=== PATIENT | female | born 1940 | race Caucasian/White ===

== ENCOUNTER 2021-03-01 16:13 | Emergency (ER) | payer MEDICAID ==
[~2021-03-01] VITALS: Ht 154.9 cm; Wt 61.7 kg
[2021-03-01 16:23] VITALS: BP_SYST 121
--- NOTE | 2021-03-01 16:30 | NUR ---
Patient to ER bed 1 to gown for evaluation. Side rails up. Report given to Amira GENTILE.
--- NOTE | 2021-03-01 16:32 | NUR ---
Dr. Torres at bedside to assess.
--- NOTE | 2021-03-01 16:43 | NUR ---
Portable X-ray done at bedside.
--- NOTE | 2021-03-01 16:48 | NUR ---
Lab at bedside for blood draw.
--- NOTE | 2021-03-01 16:51 | NUR ---
EKG completed with results given to Dr. Torres for interpretation.
[2021-03-01] MEDS ORDERED: CLIN300C12 PO (17:09)
[2021-03-01] MEDS ORDERED: IBUP-1971 PO (17:09)
[2021-03-01 17:15] LABS: BASOPHILS % (AUTO) 0.5 % (0.0-2.0); EOSINOPHILS # (AUTO) 0.1 K/uL (0.0-0.4); EOSINOPHILS % (AUTO) 0.9 % (0.0-4.0); HEMATOCRIT 37.9 % (36-48); HEMOGLOBIN 12.9 g/dL (12.0-16.0); LYMPHOCYTES # (AUTO) 1.7 K/uL (1.0-5.5); LYMPHOCYTES % (AUTO) 28.8 % (20.5-51.5); MEAN CORPUSCULAR HEMOGLOBIN 32 pg (27-31); MEAN CORPUSCULAR HGB CONC 34 % (32-36); MEAN CORPUSCULAR VOLUME 93 fL (79.0-98.0); MONOCYTES # (AUTO) 0.5 K/uL (0.0-1.0); MONOCYTES % (AUTO) 8.3 % (1.7-9.3); NEUTROPHILS # (AUTO) 3.6 K/uL (1.8-7.7); NEUTROPHILS % (AUTO) 61.5 % (40.0-70.0); PLATELET COUNT (AUTO) 263 K/uL (130-430); RED BLOOD CELL COUNT(AUTO) 4.09 MIL/uL (4.2-6.2); RED CELL DISTRIBUTION WIDTH 13.8 % (9.0-15.0); WHITE BLOOD COUNT (AUTO) 5.9 K/uL (4.8-10.8)
[2021-03-01 17:24] LABS: ANION GAP 7 (5-15); CALCIUM 9.7 mg/dL (8.4-11.0); CHLORIDE 96 mmol/L (98-107); CREATININE 1.12 mg/dL (0.55-1.30); GLUCOSE 106 mg/dL (70-99); POTASSIUM 4.7 mmol/L (3.5-5.1); SODIUM SERUM 131 mmol/L (136-145); UREA NITROGEN, BLOOD 31 mg/dL (8-21)
[2021-03-01 17:26] LABS: INR 0.9 (0.8-1.2); PROTHROMBIN TIME 9.6 SECS (9.5-12.5)
[2021-03-01 17:28] LABS: ALANINE AMINOTRANSFERASE 36 U/L (12-78); ALBUMIN 3.7 g/dL (3.4-4.8); ASPARTATE AMINOTRANSFERASE 31 U/L (10-37); TOTAL BILIRUBIN 0.4 mg/dL (0.0-1.0)
--- NOTE | 2021-03-01 18:05 | NUR ---
Pt resting quietly in no distress awaiting disposition.
--- NOTE | 2021-03-01 18:30 | NUR ---
Daughter at bedside to assist pt with eating diet.
[2021-03-01 19:18] VITALS: BP_SYST 121
--- NOTE | 2021-03-01 19:19 | NUR ---
Patient given written and verbal discharge instructions and verbalizes understanding. DR. MARINA ESCALANTE MD discussed with patient the results and treatment provided. Patient in stable condition. ID arm band removed. IV catheter removed intact and dressing applied, no active bleeding. Patient educated on pain management and to follow up with PMD. Pain Scale 0/10 Opportunity for questions provided and answered. Medication side effect fact sheet provided.
== END 2021-03-01 19:18 ==
LOC: SED 16:13
DX: S63.502A Unspecified sprain of left wrist, initial encounter (principal); R53.1 Weakness; K21.9 Gastro-esophageal reflux disease without esophagitis; E03.9 Hypothyroidism, unspecified; W18.39XA Other fall on same level, initial encounter; Y93.89 Activity, other specified; Y92.89 Other specified places as the place of occurrence of the external cause; Y99.8 Other external cause status
CPT/HCPCS: 36415; 71045; 80053; 82550; 83605; 84484; 85025; 85610-TC; 85730-TC; 93005; 99285

== ENCOUNTER 2023-06-23 16:27 | Inpatient (IN) | payer MEDICAID ==
[~2023-06-23] VITALS: Ht 162.6 cm; Wt 53.5 kg
[2023-06-23 16:39] VITALS: BP_SYST 124; PULSE 64; RESP 16; TEMP 97.7; O2SAT 96
[2023-06-23 17:24] LABS: BASOPHILS % (AUTO) 0.1 % (0.0-2.0); EOSINOPHILS % (AUTO) 0.2 % (0.0-4.0); HEMATOCRIT 32.9 % (36-48); LYMPHOCYTES # (AUTO) 2.4 K/uL (1.0-5.5); LYMPHOCYTES % (AUTO) 21.5 % (20.5-51.5); MEAN CORPUSCULAR HEMOGLOBIN 32 pg (27-31); MEAN CORPUSCULAR HGB CONC 34 % (32-36); MEAN CORPUSCULAR VOLUME 95 fL (79.0-98.0); MONOCYTES # (AUTO) 0.8 K/uL (0.0-1.0); MONOCYTES % (AUTO) 6.7 % (1.7-9.3); NEUTROPHILS # (AUTO) 8.1 K/uL (1.8-7.7); NEUTROPHILS % (AUTO) 71.5 % (40.0-70.0); PLATELET COUNT (AUTO) 248 K/uL (130-430); RED BLOOD CELL COUNT(AUTO) 3.48 MIL/uL (4.2-6.2); RED CELL DISTRIBUTION WIDTH 14.8 % (9.0-15.0); WHITE BLOOD COUNT (AUTO) 11.3 K/uL (4.8-10.8)
[2023-06-23 17:38] LABS: ANION GAP 7 (5-15); CALCIUM 8.5 mg/dL (8.4-11.0); CARBON DIOXIDE 27 mmol/L (23-29); CHLORIDE 109 mmol/L (98-107); CREATININE 1.07 mg/dL (0.55-1.30); GLUCOSE 102 mg/dL (74-106); POTASSIUM 4.5 mmol/L (3.5-5.1); SODIUM SERUM 143 mmol/L (136-145); UREA NITROGEN, BLOOD 30 mg/dL (8-21)
[2023-06-23 17:49] LABS: ABG O2 SAT% ESTIMATE 96.4 % (94.0-100.0); BLOOD GAS BASE EXCESS -0.5 mmol/L (-3.0-3.0); BLOOD GAS HCO3 22.1 mmol/L (21.0-27.0); BLOOD GAS PCO2 30.9 mmHg (35.0-45.0); BLOOD GAS PH 7.472 (7.350-7.450); BLOOD GAS PO2 78.6 mmHg (75.0-100.0)
[2023-06-23 18:07] LABS: PROTHROMBIN TIME 10.8 SECS (9.5-12.5)
[2023-06-23] MEDS: NACL 0.9% 1,000 ML IV ONE (19:56)
[2023-06-23] MEDS: cefTRIAXone 1 GM IVPB PREMIX 50 ML IV ONE (20:35)
[2023-06-23 20:59] LABS: BILIRUBIN,URINE NEGATIVE (NEGATIVE); BLOOD, URINE 3+ (NEGATIVE); COLOR,URINE YELLOW (YELLOW); GLUCOSE,URINE NEGATIVE (NEGATIVE); KETONES,URINE NEGATIVE (NEGATIVE); LEUKOCYTE ESTERASE ,URINE 3+ (NEGATIVE); NITRITE, URINE POSITIVE (NEGATIVE); PROTEIN URINE 2+ (NEGATIVE); UROBILINOGEN,URINE 0.2 (0.2-1.0)
[2023-06-23 21:01] LABS: CLARITY/URINE HAZY (CLEAR)
[2023-06-23] MEDS ORDERED: LIP10 PO (21:16)
[2023-06-23] MEDS ORDERED: AMYL1CAP58 PO (21:16)
[2023-06-23] MEDS ORDERED: FLEETMO RC (21:16)
[2023-06-23] MEDS ORDERED: NYST15PO2 TP (21:16)
[2023-06-23] MEDS ORDERED: VITD2000 PO (21:16)
[2023-06-23] MEDS ORDERED: SACC250C3 PO (21:16)
[2023-06-23] MEDS ORDERED: MOM PO (21:16)
[2023-06-23] MEDS ORDERED: DOCU-144 PO (21:16)
[2023-06-23] MEDS ORDERED: OSCD500 PO (21:16)
[2023-06-23] MEDS ORDERED: ACET325T PO (21:16)
[2023-06-23] MEDS ORDERED: POLY15DR31 LEFT EYE (21:16)
[2023-06-23] MEDS ORDERED: ACET325T53 PO (21:16)
[2023-06-23] MEDS ORDERED: NEPH PO (21:16)
[2023-06-23] MEDS ORDERED: LISI20TA30 PO (21:16)
[2023-06-23] MEDS ORDERED: BISA10SU61 RC (21:16)
[2023-06-23] MEDS ORDERED: FER300L PO (21:16)
[2023-06-23] MEDS ORDERED: GUAI-1197 PO (21:16)
[2023-06-23] MEDS ORDERED: ASPI-1393 PO (21:16)
[2023-06-23] MEDS ORDERED: LEVO137T32 PO (21:16)
[2023-06-23] MEDS: PIPERACILLIN/TAZO 3.375 GM in NS 50 ML IV SCH (21:22)
[2023-06-23] MEDS ORDERED: PIPERACILLIN/TAZOBACTAM 3.375 GM/VIAL (ZOSYN) IV ONE (21:23)
[2023-06-23] MEDS: D5NS 1,000 ML IV SCH (21:30)
[2023-06-23 21:37] LABS: BACTERIA,URINE MANY /HPF (None Seen); WBC,URINE 20-50 /HPF (0-3)
[2023-06-24 04:13] LABS: ANION GAP 9 (5-15); CALCIUM 8.6 mg/dL (8.4-11.0); CARBON DIOXIDE 28 mmol/L (23-29); CHLORIDE 109 mmol/L (98-107); CREATININE 1.08 mg/dL (0.55-1.30); GLUCOSE 95 mg/dL (74-106); POTASSIUM 4.1 mmol/L (3.5-5.1); SODIUM SERUM 146 mmol/L (136-145); UREA NITROGEN, BLOOD 26 mg/dL (8-21)
[2023-06-24 04:14] LABS: BASOPHILS % (AUTO) 0.2 % (0.0-2.0); EOSINOPHILS % (AUTO) 0.5 % (0.0-4.0); HEMATOCRIT 32.4 % (36-48); HEMOGLOBIN 10.8 g/dL (12.0-16.0); LYMPHOCYTES # (AUTO) 2.7 K/uL (1.0-5.5); LYMPHOCYTES % (AUTO) 28.7 % (20.5-51.5); MEAN CORPUSCULAR HEMOGLOBIN 32 pg (27-31); MEAN CORPUSCULAR HGB CONC 33 % (32-36); MEAN CORPUSCULAR VOLUME 94 fL (79.0-98.0); MONOCYTES # (AUTO) 0.8 K/uL (0.0-1.0); MONOCYTES % (AUTO) 8.1 % (1.7-9.3); NEUTROPHILS # (AUTO) 5.9 K/uL (1.8-7.7); NEUTROPHILS % (AUTO) 62.5 % (40.0-70.0); PLATELET COUNT (AUTO) 234 K/uL (130-430); RED BLOOD CELL COUNT(AUTO) 3.43 MIL/uL (4.2-6.2); RED CELL DISTRIBUTION WIDTH 14.4 % (9.0-15.0); WHITE BLOOD COUNT (AUTO) 9.5 K/uL (4.8-10.8)
[2023-06-24 04:17] LABS: ALANINE AMINOTRANSFERASE 15 U/L (12-78); ALBUMIN 2.6 g/dL (3.4-4.8); ASPARTATE AMINOTRANSFERASE 19 U/L (10-37); TOTAL BILIRUBIN 0.3 mg/dL (0.0-1.0); TOTAL PROTEIN, SERUM 7.2 g/dL (6.4-8.3)
[2023-06-24] MEDS ORDERED: PIPERACILLIN/TAZOBACTAM 3.375 GM/VIAL (ZOSYN) IV ONE (06:36)
[2023-06-24] MEDS ORDERED: PEG 400/HYPROMELLOSE/GLYCERIN 15 ML DROPS LEFT EYE PRN (08:30)
[2023-06-24] MEDS ORDERED: NYST15CR36 TP (09:59)
[2023-06-24] MEDS ORDERED: FERR325T30 PO (09:59)
[2023-06-24] MEDS ORDERED: CALC-884 PO (09:59)
[2023-06-24] MEDS ORDERED: PEG15DRO12 LEFT EYE (09:59)
[2023-06-24] MEDS ORDERED: GUAI5LIQ13 PO (09:59)
[2023-06-24] MEDS: DOCUSATE SODIUM 100 MG CAPSULE PO SCH (10:12)
[2023-06-24] MEDS: BISACODYL 10 MG/SUPPOSITORY RC SCH (10:12)
[2023-06-24] MEDS: FERROUS SULFATE 300 MG/5 ML UDC PO SCH (10:12)
[2023-06-24] MEDS: ASPIRIN 81 MG TABLET(ECOTRIN) PO SCH (10:12)
[2023-06-24 10:16] VITALS: BP_SYST 141; PULSE 96; RESP 18; TEMP 98.9; O2SAT 96
[2023-06-24 11:35] VITALS: BP_SYST 133; PULSE 69; RESP 16; TEMP 97.5; O2SAT 93
[2023-06-24 16:39] VITALS: BP_SYST 157; PULSE 92; RESP 16; TEMP 97.4; O2SAT 94
[2023-06-24] MEDS ORDERED: PEG 400/HYPROMELLOSE/GLYCERIN 15 ML DROPS OP PRN (19:00)
[2023-06-24] MEDS ORDERED: PEG 400/HYPROMELLOSE/GLYCERIN 15 ML DROPS BOTH EYES PRN (19:05)
[2023-06-24] MEDS: IPRATROPIUM/ALBUTEROL SULFATE 3 ML AMPUL.NEB (DUONEB) INH SCH (19:50)
[2023-06-24 20:15] VITALS: O2SAT 96
[2023-06-24] MEDS: ATORVASTATIN 10 MG TABLET PO SCH (21:43)
[2023-06-24 21:52] VITALS: O2SAT 94
[2023-06-24 22:54] VITALS: BP_SYST 132; PULSE 78; RESP 16; TEMP 97.7; O2SAT 94
[2023-06-25] VITALS (11 sets, daily range): BP systolic 128–162; PULSE 70–114; RESP 16–20; TEMP 97–99; O2SAT 92–100
[2023-06-25 06:05] LABS: BASOPHILS % (AUTO) 0.5 % (0.0-2.0); EOSINOPHILS # (AUTO) 0.1 K/uL (0.0-0.4); EOSINOPHILS % (AUTO) 1.1 % (0.0-4.0); HEMATOCRIT 29.8 % (36-48); HEMOGLOBIN 10.2 g/dL (12.0-16.0); LYMPHOCYTES # (AUTO) 1.9 K/uL (1.0-5.5); LYMPHOCYTES % (AUTO) 26.4 % (20.5-51.5); MEAN CORPUSCULAR HEMOGLOBIN 32 pg (27-31); MEAN CORPUSCULAR HGB CONC 34 % (32-36); MEAN CORPUSCULAR VOLUME 94 fL (79.0-98.0); MONOCYTES # (AUTO) 0.7 K/uL (0.0-1.0); MONOCYTES % (AUTO) 10.1 % (1.7-9.3); NEUTROPHILS # (AUTO) 4.4 K/uL (1.8-7.7); NEUTROPHILS % (AUTO) 61.9 % (40.0-70.0); PLATELET COUNT (AUTO) 218 K/uL (130-430); RED BLOOD CELL COUNT(AUTO) 3.16 MIL/uL (4.2-6.2); RED CELL DISTRIBUTION WIDTH 14.6 % (9.0-15.0); WHITE BLOOD COUNT (AUTO) 7.1 K/uL (4.8-10.8)
[2023-06-25 06:36] LABS: ANION GAP 8 (5-15); CALCIUM 8.3 mg/dL (8.4-11.0); CARBON DIOXIDE 25 mmol/L (23-29); CHLORIDE 110 mmol/L (98-107); CHOLESTEROL 123 mg/dL (<200); CREATININE 1.09 mg/dL (0.55-1.30); GLUCOSE 100 mg/dL (74-106); HDL CHOLESTEROL 51 mg/dL (>55); POTASSIUM 3.6 mmol/L (3.5-5.1); SODIUM SERUM 143 mmol/L (136-145); THYROID STIMULATING HORMONE 24.04 uIu/mL (0.34-4.82); TRIGLYCERIDES 61 mg/dL (30-150); UREA NITROGEN, BLOOD 24 mg/dL (8-21)
[2023-06-25] MEDS: LEVOTHYROXINE SODIUM 0.137 MG TABLET PO SCH (09:02)
[2023-06-26] VITALS (9 sets, daily range): BP systolic 132–179; PULSE 60–125; RESP 16–20; TEMP 97.3–99; O2SAT 92–97
[2023-06-26] MEDS: LEVOTHYROXINE SODIUM 0.125 MG TABLET PO SCH (06:13)
[2023-06-26] MEDS ORDERED: CIPR250T4 PO (10:23)
[2023-06-26 20:40] LABS: BASOPHILS % (AUTO) 0.4 % (0.0-2.0); EOSINOPHILS # (AUTO) 0.1 K/uL (0.0-0.4); EOSINOPHILS % (AUTO) 1.1 % (0.0-4.0); HEMATOCRIT 28.7 % (36-48); HEMOGLOBIN 9.8 g/dL (12.0-16.0); LYMPHOCYTES # (AUTO) 1.4 K/uL (1.0-5.5); LYMPHOCYTES % (AUTO) 17.1 % (20.5-51.5); MEAN CORPUSCULAR HEMOGLOBIN 32 pg (27-31); MEAN CORPUSCULAR HGB CONC 34 % (32-36); MEAN CORPUSCULAR VOLUME 95 fL (79.0-98.0); MONOCYTES # (AUTO) 0.8 K/uL (0.0-1.0); MONOCYTES % (AUTO) 10.3 % (1.7-9.3); NEUTROPHILS # (AUTO) 5.7 K/uL (1.8-7.7); NEUTROPHILS % (AUTO) 71.1 % (40.0-70.0); PLATELET COUNT (AUTO) 222 K/uL (130-430); RED BLOOD CELL COUNT(AUTO) 3.04 MIL/uL (4.2-6.2); RED CELL DISTRIBUTION WIDTH 14.5 % (9.0-15.0); WHITE BLOOD COUNT (AUTO) 8.1 K/uL (4.8-10.8)
[2023-06-27] VITALS (9 sets, daily range): BP systolic 107–152; PULSE 88–111; RESP 16–20; TEMP 97.3–98.7; O2SAT 93–96
== END 2023-06-27 14:50 | DRG 720 ==
LOC: SED 16:27 → STU 20:21 → SMU 06-26 18:52
PROVIDERS: ADMIT Internal Medicine; ATTEND Internal Medicine
DX: A41.9 Sepsis, unspecified organism (principal); E43 Unspecified severe protein-calorie malnutrition; J18.9 Pneumonia, unspecified organism; I48.20 Chronic atrial fibrillation, unspecified; F03.90 Unspecified dementia, unspecified severity, without behavioral disturbance, psychotic disturbance, mood disturbance, and anxiety; E03.9 Hypothyroidism, unspecified; E86.0 Dehydration; F20.9 Schizophrenia, unspecified; N39.0 Urinary tract infection, site not specified; J06.9 Acute upper respiratory infection, unspecified; K21.9 Gastro-esophageal reflux disease without esophagitis; I12.9 Hypertensive chronic kidney disease with stage 1 through stage 4 chronic kidney disease, or unspecified chronic kidney disease; N18.9 Chronic kidney disease, unspecified; F32.A Depression, unspecified; Z74.01 Bed confinement status; Z90.710 Acquired absence of both cervix and uterus; Z79.1 Long term (current) use of non-steroidal anti-inflammatories (NSAID); Z79.899 Other long term (current) drug therapy; Z79.82 Long term (current) use of aspirin; Z68.20 Body mass index [BMI] 20.0-20.9, adult
CPT/HCPCS: 36415; 36600; 71045; 80048; 80053; 80061; 81000; 81001; 81015; 82803; 83605; 83735; 83880; 84443; 84484; 85025; 85610; 85730; 86886; 86900; 86901; 87040; 87081; 87086; 93005; 93306; 94640; 94760; 96365; 99285; G0378; J0696; J2543

== ENCOUNTER 2023-06-27 16:01 | Emergency (ER) | payer MEDICAID ==
[~2023-06-27] VITALS: Ht 162.6 cm; Wt 72.6 kg
[~2023-06-27 16:01] MED LIST: ACET325T PO; ACET325T53 PO; AMYL1CAP58 PO; ASPI-1393 PO; BISA10SU61 RC; CALC-884 PO; CIPR250T4 PO; DOCU-144 PO; FERR325T30 PO; FLEETMO RC; GUAI5LIQ13 PO; LEVO137T32 PO; LIP10 PO; LISI20TA30 PO; MOM PO; NEPH PO; NYST15CR36 TP; POLY15DR31 LEFT EYE; SACC250C3 PO; VITD2000 PO
[2023-06-27 18:00] VITALS: BP_SYST 206; PULSE 98; RESP 18; TEMP 97.3; O2SAT 93
[2023-06-27 18:51] VITALS: TEMP 97.7
[2023-06-27] MEDS: cloNIDine HCL 0.1 MG TABLET PO ONE (18:54)
[2023-06-27 19:24] VITALS: RESP 16
[2023-06-27] MEDS ORDERED: LABETALOL HCL 20 MG/4 ML CARTRIDGE IVP ONE (20:00)
[2023-06-27 20:03] VITALS: BP_SYST 148; PULSE 91; O2SAT 93
== END 2023-06-27 22:30 | disposition home or self-care (01) ==
LOC: SED 16:01
DX: I48.20 Chronic atrial fibrillation, unspecified (principal); I16.0 Hypertensive urgency; F03.90 Unspecified dementia, unspecified severity, without behavioral disturbance, psychotic disturbance, mood disturbance, and anxiety; K21.9 Gastro-esophageal reflux disease without esophagitis; I12.9 Hypertensive chronic kidney disease with stage 1 through stage 4 chronic kidney disease, or unspecified chronic kidney disease; N18.9 Chronic kidney disease, unspecified; Z79.899 Other long term (current) drug therapy
CPT/HCPCS: 93005; 99283